=== PATIENT | female | born 1995 | race Two or more races ===

== ENCOUNTER 2017-10-29 23:18 | Emergency (ER) | payer MEDICAID, OTHER ==
[~2017-10-29] VITALS: Ht 162.6 cm; Wt 93.0 kg
[2017-10-29 23:30] VITALS: BP 139/95
[2017-10-30 00:08] LABS: Urine Bacteria MANY /hpf (None Seen); Urine Blood Negative /uL (Negative); Urine Hyaline Cast FEW /lpf (0 - 2); Urine Mucus FEW (None Seen); Urine Specific Gravity 1.022 (1.001-1.035); Urine WBC 23 /hpf (0 - 5)
[2017-10-30 00:35] LABS: Basophils # (auto) 0.1 uL; Eosinophils # (auto) 0.2 uL; White Blood Cell 14.6 10^3/uL (4.4-10.8)
[2017-10-30 00:37] LABS: Basophils % (auto) 0.9 % (0.0-2.0); Eosinophils % (auto) 1.6 % (0.0-7.0); Hematocrit 39.5 % (36.0-46.0); Hemoglobin 12.6 g/dL (12.2-16.2); Lymphocytes # (auto) 3.7 uL; Mean Corpuscular Hemoglobin 25.7 pg (28.0-32.0); Mean Corpuscular Volume 80.4 fL (80.0-100.0); Monocytes # (auto) 1.2 uL; Neutrophils # (auto) 9.4 uL; Neutrophils % (auto) 64.5 % (37.0-80.0); Platelet Count (auto) 424 10^3/uL (140-450); Red Blood Cells 4.91 10^6/uL (4.0-5.20); Red Cell Distribution Width 18.3 % (11.8-14.3)
[2017-10-30 00:50] LABS: Albumin 3.5 g/dL (3.4-5.0); BUN/Creatinine Ratio 19.4; Calcium 8.5 mg/dL (8.5-10.1); Potassium 3.5 mmol/L (3.5-5.1)
[2017-10-30 00:52] LABS: Bilirubin, Total 0.3 mg/dL (0.2-1.0); Total Protein 7.8 g/dL (6.4-8.2)
== END 2017-10-30 02:05 | disposition left against medical advice (07) ==
LOC: ER 23:24
DX: R10.9 Unspecified abdominal pain (principal); Z53.21 Procedure and treatment not carried out due to patient leaving prior to being seen by health care provider
CPT/HCPCS: 36415; 74176; 80053; 81001; 84702; 85025